=== PATIENT | male | born 1950 | race Caucasian/White ===

== ENCOUNTER 2016-09-13 08:44 | Outpatient (CLI) | payer MEDICARE | END 2016-09-13 08:45 | LOC: NAVSJIPCSP 08:44 | PROVIDERS: ATTEND Internal Medicine | DX: E78.5 Hyperlipidemia, unspecified (principal); E11.39 Type 2 diabetes mellitus with other diabetic ophthalmic complication; Z79.899 Other long term (current) drug therapy | CPT/HCPCS: 36415; 80061; 83036 ==

== ENCOUNTER 2016-09-27 10:35 | Outpatient (CLI) | payer MEDICARE ==
[2016-09-27 13:17] LABS: Anion Gap 14 mmol/L (10-20); BUN (Urea Nitrogen) 22 mg/dL (8.4-25.7); Calc. Creatinine Clearance 0 mL/min (70-130); Calcium 9.3 mg/dL (7.8-10.44); Carbon Dioxide 23 mmol/L (23-31); Chloride 103 mmol/L (98-107); Estimated GFR-MDRD 57
== END 2016-09-27 10:36 | disposition home or self-care (01) ==
LOC: NAVSJIPCSP 10:35
PROVIDERS: ATTEND Internal Medicine
DX: B34.9 Viral infection, unspecified (principal); R30.0 Dysuria
CPT/HCPCS: 36415; 80048; 87077; 87086; 87186

== ENCOUNTER 2016-12-13 09:02 | Outpatient (CLI) | payer MEDICARE ==
[2016-12-13 12:44] LABS: Hemoglobin A1c 7.2 % (4.0-6.0)
[2016-12-13 12:51] LABS: Cardiac Risk 4.3 (Less than 4.5); Cholesterol 155 mg/dL (< 200 Desired); HDL Cholesterol 36 mg/dL (>60 Neg Risk); LDL Cholesterol, Calculated 60 mg/dL; Triglycerides 294 mg/dL (Less than 150)
[2016-12-13 14:18] LABS: ALT (SGPT) 26 U/L (0-55); AST (SGOT) 15 U/L (5-34); Albumin 4.4 g/dL (3.4-4.8); Alkaline Phosphatase 72 U/L (40-150); Anion Gap 16 mmol/L (10-20); BUN (Urea Nitrogen) 17 mg/dL (8.4-25.7); Bilirubin, Total 0.5 mg/dL (0.2-1.2); Calc. Creatinine Clearance 0 mL/min (70-130); Carbon Dioxide 22 mmol/L (23-31); Chloride 103 mmol/L (98-107); Estimated GFR-MDRD 65; Globulin 2.8 g/dL (2.4-3.5); Glucose 193 mg/dL (80-115); Potassium 4.6 mmol/L (3.5-5.1); Protein, Total 7.2 g/dL (5.8-8.1); Sodium 136 mmol/L (136-145)
[2016-12-14 18:57] LABS: Creatinine, Urine 138.63 mg/dL (63-166); Microalbumin Urine 7.2 mg/dL (0.5-50.0); Microalbumin/Creat Ratio 51.9 mg/g (Less than 30)
== END 2016-12-13 09:03 | disposition home or self-care (01) ==
LOC: NAVSJIPCSP 09:02
PROVIDERS: ATTEND Internal Medicine
DX: E78.5 Hyperlipidemia, unspecified (principal); E11.39 Type 2 diabetes mellitus with other diabetic ophthalmic complication; K21.9 Gastro-esophageal reflux disease without esophagitis
CPT/HCPCS: 36415; 80053; 80061; 82043; 83036

== ENCOUNTER 2017-03-22 08:57 | Outpatient (CLI) | payer MEDICARE ==
[2017-03-22 12:36] LABS: Hemoglobin A1c 7.5 % (4.0-6.0)
[2017-03-22 12:59] LABS: PSA-Asymptomatic (SCREENING) 1.07 ng/mL (0-4.0)
[2017-03-22 13:01] LABS: Cardiac Risk 4.5 (Less than 4.5)
[2017-03-23 18:02] LABS: Hep C IgG Ab Non-Reactive (NonReactive); Hep C Index 0.22 S/CO (0-0.79)
== END 2017-03-22 08:58 | disposition home or self-care (01) ==
LOC: NAVSJIPCSP 08:57
PROVIDERS: ATTEND Internal Medicine
DX: Z12.5 Encounter for screening for malignant neoplasm of prostate (principal); E11.39 Type 2 diabetes mellitus with other diabetic ophthalmic complication; E11.65 Type 2 diabetes mellitus with hyperglycemia; I10 Essential (primary) hypertension; E78.5 Hyperlipidemia, unspecified; K21.9 Gastro-esophageal reflux disease without esophagitis; Z79.899 Other long term (current) drug therapy
CPT/HCPCS: 36415; 80061; 83036; 86803; G0103

== ENCOUNTER 2018-05-06 10:15 | Outpatient (CLI) | payer MEDICARE ==
--- NOTE | 2018-05-06 12:16 | RAD ---
TWO VIEWS CHEST: HISTORY: Chronic cough. History of flail chest from horse accident. COMPARISON: None. FINDINGS: Normal cardiac silhouette. The pulmonary vessels and hilum are normal. Costophrenic angles are monica r. No consolidation or mass. No pneumothorax. Chronic change of the right hemithorax due to remote injury are suspected. IMPRESSION: No acute cardiopulmonary process. POS: [facility]
== END 2018-05-06 10:16 | disposition home or self-care (01) ==
LOC: NAV RAD 10:15
PROVIDERS: ATTEND Internal Medicine
DX: R05 Cough (principal)
CPT/HCPCS: 71046

== ENCOUNTER 2022-04-25 11:05 | Outpatient (CLI) | payer MEDICARE | END 2022-04-25 11:06 | disposition home or self-care (01) | LOC: NAV RAD 11:05 | PROVIDERS: ATTEND Family Medicine | DX: J01.10 Acute frontal sinusitis, unspecified (principal) | CPT/HCPCS: 71046 ==